=== PATIENT | male | born 1955 | race Caucasian/White ===

== ENCOUNTER 2022-03-20 17:42 | Inpatient (IN) ==
[2022-03-20] MEDS ORDERED: Heparin 2 UNITS/ML 1000 mls 2,000 ML IV ONE (17:47)
[2022-03-20] MEDS ORDERED: Lidocaine 1% MPF 5 ML VIAL ONE (17:47)
[2022-03-20] MEDS ORDERED: nitroGLYCERIN DRIP 25,000 MCG/250 ML BTL ONE (17:47)
[2022-03-20] MEDS ORDERED: Heparin 1,000 UNIT/ML 10 ml (10,000 UNITS) CATHLAB/DIALYSIS ONE (17:47)
[2022-03-20] MEDS ORDERED: niCARdipine 0.1MG/ML IVPREMIX 20 MG/200 ML BAG IV ONE (17:48)
[2022-03-20] MEDS ORDERED: Iohexol 350 (CONTRAST) 100 ML PAK IV ONE ×4 (17:48→18:49)
[2022-03-20] MEDS ORDERED: fentaNYL 100 mcg/2 ml 50 MCG/ML VIAL ONE (17:52)
[2022-03-20] MEDS ORDERED: Midazolam 5 mg/5 ml VIAL 1 mg/ml 5 ml VIAL (5 mg) ONE (17:52)
[2022-03-20] MEDS ORDERED: Heparin - STEMI 5,000 UNITS/ML 1 ml VIAL IV ONE ×2 (17:53→17:55)
[2022-03-20 18:12] LABS: ABS Eosinophils 0.1 10^3/ul (0-0.6); ABS Lymphocytes 1.2 10^3/ul (1.0-4.8); ABS Monocytes 1.1 10^3/ul (0-0.8); ABS Neutrophils 8.3 10^3/ul (1.5-7.7); Eosinophil % 1.1 %; Hematocrit 48 % (42-52); Hemoglobin 15.5 g/dL (14.0-18.0); Lymphocyte % 11.4 %; Mean Corpuscular HGB Conc 32 g/dL (31-36); Mean Corpuscular Hemoglobin 31 pg (27-31); Mean Corpuscular Volume 94 fL (80-94); Mean Platelet Volume 6.4 fL (7.4-10.4); Platelet Count 186 10^3/uL (150-450); Red Blood Count 5.07 10^6 /uL (4.18-5.48); Red Cell Distribution Width 15 % (10-15); White Blood Count 10.7 10^3/uL (3.5-10.8)
[2022-03-20 18:21] LABS: Albumin 4.4 g/dL (3.2-5.2); Calcium 9.7 mg/dL (8.6-10.3); Potassium 3.9 mmol/L (3.5-5.0); Total Bilirubin 0.9 mg/dL (0.2-1.0)
[2022-03-20 18:24] LABS: Activated Partial Thrombo Time 33.2 seconds (26.0-38.0); INR 0.95 (0.89-1.11)
[2022-03-20 18:26] LABS: Albumin/Globulin Ratio 1.7 (1-3); Globulin 2.6 g/dL (2-4); eGFR CKD-EPI 76.5 (>60)
[2022-03-20] MEDS ORDERED: Atropine 0.1 MG/ML 10 ml SYR (1 mg) ONE (18:28)
[2022-03-20] MEDS ORDERED: Heparin 2 UNITS/ML 1000 mls 1,000 ML IV ONE (18:29)
[2022-03-20] MEDS ORDERED: Norepinephrine 16MCG/ML BAG NS 4,000 MCG/250 ML BAG IV ONE (18:41)
[2022-03-20] MEDS ORDERED: Prasugrel 10 mg TAB (NF) ONE (18:50)
[2022-03-20] MEDS ORDERED: Eptifibatide IV (Load dose) 2 MG/ML 10 ml VIAL ONE (20:11)
[2022-03-20] MEDS ORDERED: Ondansetron 4 mg VIAL 2 MG/ML 2 ml VIAL IV PRN (20:22)
[2022-03-21 06:22] LABS: ABS Eosinophils 0.1 10^3/ul (0-0.6); ABS Lymphocytes 1.3 10^3/ul (1.0-4.8); ABS Monocytes 1.3 10^3/ul (0-0.8); ABS Neutrophils 8.5 10^3/ul (1.5-7.7); Eosinophil % 0.6 %; Hematocrit 44 % (42-52); Hemoglobin 14.5 g/dL (14.0-18.0); Lymphocyte % 11.2 %; Mean Corpuscular HGB Conc 33 g/dL (31-36); Mean Corpuscular Hemoglobin 31 pg (27-31); Mean Corpuscular Volume 93 fL (80-94); Mean Platelet Volume 6.4 fL (7.4-10.4); Nucleated Red Blood Cells % 0.1; Platelet Count 158 10^3/uL (150-450); Red Blood Count 4.74 10^6 /uL (4.18-5.48); Red Cell Distribution Width 15 % (10-15); White Blood Count 11.1 10^3/uL (3.5-10.8)
[2022-03-21 06:54] LABS: Albumin 3.7 g/dL (3.2-5.2); Albumin/Globulin Ratio 1.8 (1-3); Globulin 2.1 g/dL (2-4); HDL Cholesterol 34.9 mg/dL; Potassium 4.2 mmol/L (3.5-5.0); Total Bilirubin 1.4 mg/dL (0.2-1.0); Total Protein 5.8 g/dL (6.4-8.9); eGFR CKD-EPI 94.2 (>60)
[2022-03-21] MEDS ORDERED: Perflutren Lipid Microsphere 3 ML VIAL ONE (07:40)
[2022-03-21] MEDS: CMCS: Prasugrel 10 mg TAB (NF) PO SCH (08:15)
[2022-03-21] MEDS: Albuterol HFA INHALER 8 gm MDI INH PRN (09:28)
[2022-03-21] MEDS: FLUTICAS/UMECLI/VILANT 100-62.5-25 MDI (NF) INH SCH (11:43)
[2022-03-22 05:27] LABS: Hematocrit 45 % (42-52); Hemoglobin 14.8 g/dL (14.0-18.0); Mean Corpuscular HGB Conc 33 g/dL (31-36); Mean Corpuscular Hemoglobin 31 pg (27-31); Mean Corpuscular Volume 93 fL (80-94); Mean Platelet Volume 6.3 fL (7.4-10.4); Platelet Count 155 10^3/uL (150-450); Red Blood Count 4.86 10^6 /uL (4.18-5.48); Red Cell Distribution Width 15 % (10-15); White Blood Count 9.4 10^3/uL (3.5-10.8)
[2022-03-22 06:05] LABS: Calcium 8.9 mg/dL (8.6-10.3); Potassium 4.2 mmol/L (3.5-5.0); eGFR CKD-EPI 94.2 (>60)
[2022-03-22] MEDS ORDERED: NS 0.9% 1000 ml BAG 1,000 ML IV SCH (07:00)
[2022-03-22] MEDS: CMCS: Prasugrel 10 mg TAB (NF) PO SCH (08:05)
[2022-03-22] MEDS: FLUTICAS/UMECLI/VILANT 100-62.5-25 MDI (NF) INH SCH (09:39)
[2022-03-22] MEDS ORDERED: Heparin 1,000 UNIT/ML 10 ml (10,000 UNITS) CATHLAB/DIALYSIS ONE (09:45)
[2022-03-22] MEDS ORDERED: nitroGLYCERIN DRIP 25,000 MCG/250 ML BTL ONE (09:45)
[2022-03-22] MEDS ORDERED: Midazolam 5 mg/5 ml VIAL 1 mg/ml 5 ml VIAL (5 mg) ONE (09:45)
[2022-03-22] MEDS ORDERED: fentaNYL 100 mcg/2 ml 50 MCG/ML VIAL ONE ×2 (09:45→11:44)
[2022-03-22] MEDS ORDERED: Heparin 2 UNITS/ML 1000 mls 2,000 ML IV ONE (09:45)
[2022-03-22] MEDS ORDERED: niCARdipine 0.1MG/ML IVPREMIX 20 MG/200 ML BAG IV ONE (09:46)
[2022-03-22] MEDS ORDERED: Iohexol 350 (CONTRAST) 100 ML PAK IV ONE (09:46)
[2022-03-22] MEDS ORDERED: Lidocaine 1% MPF 5 ML VIAL ONE (09:46)
[2022-03-22] MEDS ORDERED: Atropine 0.1 MG/ML 10 ml SYR (1 mg) ONE (10:48)
[2022-03-22] MEDS ORDERED: Heparin 2 UNITS/ML 1000 mls 1,000 ML IV ONE (10:56)
[2022-03-23] MEDS: FLUTICAS/UMECLI/VILANT 100-62.5-25 MDI (NF) INH SCH (07:09)
[2022-03-23] MEDS: Albuterol HFA INHALER 8 gm MDI INH PRN (07:48)
[2022-03-23] MEDS: CMCS: Prasugrel 10 mg TAB (NF) PO SCH (08:55)
[2022-03-23 11:24] LABS: Hematocrit 45 % (42-52); Hemoglobin 14.7 g/dL (14.0-18.0); Mean Corpuscular HGB Conc 33 g/dL (31-36); Mean Corpuscular Hemoglobin 30 pg (27-31); Mean Corpuscular Volume 92 fL (80-94); Mean Platelet Volume 6.3 fL (7.4-10.4); Platelet Count 146 10^3/uL (150-450); Red Blood Count 4.84 10^6 /uL (4.18-5.48); Red Cell Distribution Width 15 % (10-15); White Blood Count 11.1 10^3/uL (3.5-10.8)
[2022-03-23 12:22] LABS: ABS Lymphocytes 1.1 10^3/ul (1.0-4.8); ABS Monocytes 1.6 10^3/ul (0-0.8); ABS Neutrophils 8.4 10^3/ul (1.5-7.7); Eosinophil % 0.3 %; Lymphocyte % 9.5 %
[2022-03-23 12:45] LABS: Calcium 8.8 mg/dL (8.6-10.3); eGFR CKD-EPI 97.6 (>60)
[2022-03-23 13:51] VITALS: BP 152/87
== END 2022-03-23 13:40 | disposition home or self-care (01) | DRG 247 ==
LOC: ED 17:42 → CHICATH 18:08 → ICU 20:35
PROVIDERS: ADMIT Internal Medicine; ATTEND Internal Medicine